=== PATIENT | male | born 1950 | race Caucasian/White ===

== ENCOUNTER 2024-10-01 19:49 | Emergency (ER) | payer MEDICARE ==
[~2024-10-01] VITALS: Ht 177.8 cm; Wt 81.6 kg
[2024-10-01] MEDS ORDERED: LIDOcaine HCl 1% (Local Anesth.) 20 ML VIAL STI STA (21:04)
[2024-10-01] MEDS ORDERED: NEOMYCIN-BACITRACIN-POLYMYXIN 0.5 GM/PAK PAK TOP ONE (21:05)
[2024-10-01] MEDS ORDERED: SODIUM CHLORIDE 1,000 ML BTL IR ONE (21:05)
[2024-10-01] MEDS ORDERED: POVIDONE IODINE 0.5 OZ/BTL TOP ONE (21:05)
[2024-10-01] MEDS ORDERED: Diph, Acellular Pertussis, Tet 0.5 ML/VIAL (Tdap) SDV IM ONE (21:05)
[2024-10-01 23:07] VITALS: BP 156/100
== END 2024-10-01 23:07 | disposition home or self-care (01) ==
LOC: ED 19:49
PROC: 0HQGXZZ Repair Left Hand Skin, External Approach (ICD-10-PCS; principal; 2024-10-01)
DX: S61.012A Laceration without foreign body of left thumb without damage to nail, initial encounter (principal); W25.XXXA Contact with sharp glass, initial encounter; Z88.2 Allergy status to sulfonamides; Z91.012 Allergy to eggs; Z85.46 Personal history of malignant neoplasm of prostate; Z85.118 Personal history of other malignant neoplasm of bronchus and lung